=== PATIENT | female | born 1970 | race Caucasian/White ===

== ENCOUNTER 2020-02-21 06:45 | Outpatient (REF) | payer OTHER, SELFPAY | END 2020-02-21 06:46 | disposition home or self-care (01) | LOC: HO.LAB 06:45 | PROVIDERS: Visit Provider Internal Medicine | DX: Z20.828 Contact with and (suspected) exposure to other viral communicable diseases (principal) | CPT/HCPCS: C9803; U0003 ==

== ENCOUNTER 2020-03-15 07:13 | Outpatient (REF) | payer OTHER, SELFPAY | END 2020-03-15 07:14 | disposition home or self-care (01) | LOC: HO.LAB 07:13 | PROVIDERS: PCP Internal Medicine; Visit Provider Internal Medicine | DX: Z20.828 Contact with and (suspected) exposure to other viral communicable diseases (principal) | CPT/HCPCS: C9803; U0003 ==

== ENCOUNTER 2020-03-27 07:56 | Outpatient (REF) | payer OTHER, SELFPAY | END 2020-03-27 07:57 | disposition home or self-care (01) | LOC: HO.LAB 07:56 | PROVIDERS: Visit Provider Internal Medicine | DX: Z20.822 Contact with and (suspected) exposure to COVID-19 (principal) | CPT/HCPCS: 36415; C9803; U0003 ==

== ENCOUNTER 2020-04-04 09:53 | Outpatient (REF) | payer OTHER, SELFPAY ==
[2020-04-07 12:12] LABS: HPV mRNA E6/E7 Not Detected (Not Detected)
== END 2020-04-04 09:54 | disposition home or self-care (01) ==
LOC: HO.LAB 09:53
PROVIDERS: Visit Provider Advanced Practice Midwife
DX: Z01.419 Encounter for gynecological examination (general) (routine) without abnormal findings (principal); Z87.42 Personal history of other diseases of the female genital tract
CPT/HCPCS: 36415; 87624; 87625; 88141; 88142

== ENCOUNTER 2020-11-17 07:17 | Outpatient (REF) | payer OTHER, SELFPAY ==
--- NOTE | ~2020-11-17 | MM_ITS ---
EXAMINATION: MM SCREENING DIGITAL BREAST TOMOSYNTHESIS, BILATERAL CLINICAL INFORMATION: Screening. Asymptomatic. Benign left stereotactic biopsy 09/11/2018 (Breast tissue with columnar cell change, fibrocystic changes, and microcalcifications; no atypia or carcinoma seen). The lifetime risk of breast cancer based on the Tyrer-Cuzick Model is 10%. COMPARISON: Mammography: 09/15/2019, 03/16/2019, 03/11/2018, 2018, 03/02/2018 TECHNIQUE: Digital breast tomosynthesis is performed in both the craniocaudal and mediolateral oblique views along with computer-aided detection (CAD). Synthesized 2D images are generated from the tomosynthesis. FINDINGS: The breasts are heterogeneously dense, which may obscure small masses (ACR BI-RADS breast composition Category c). Breast tissue composition borders on average fibroglandular. There is a biopsy clip marker anterior 9:00 left breast. There are stable calcifications posterior 12:00 right breast. Neither breast shows interval mass or architectural abnormality. There is no developing density. The axilla and skin contours are unremarkable. No significant changes. MM/MM tomosynthesis screening BI IMPRESSION: No mammographic evidence of malignancy. ASSESSMENT: BI-RADS 2: Benign RECOMMENDATION: Routine annual mammography screening. This patient's information was entered into a reminder system with a target due date for their next mammogram.
== END 2020-11-17 07:18 | disposition home or self-care (01) ==
LOC: HO.MAMMO 07:17
PROVIDERS: Visit Provider Internal Medicine
DX: Z12.31 Encounter for screening mammogram for malignant neoplasm of breast (principal)
CPT/HCPCS: 77063; 77067

== ENCOUNTER 2021-11-23 07:16 | Outpatient (REF) | payer OTHER, SELFPAY ==
--- NOTE | ~2021-11-23 | MM_ITS ---
EXAMINATION: MM SCREENING DIGITAL BREAST TOMOSYNTHESIS, BILATERAL CLINICAL INFORMATION: Screening. Asymptomatic. The lifetime risk of breast cancer based on the Tyrer-Cuzick Model is 9%. COMPARISON: Mammography: 11/17/2020, 09/15/2019, 03/16/2019, 09/03/2018, 03/02/2018, 08/09/2017 TECHNIQUE: Digital breast tomosynthesis is performed in both the craniocaudal and mediolateral oblique views along with computer-aided detection (CAD). Synthesized 2D images are generated from the tomosynthesis. FINDINGS: The breasts are heterogeneously dense, which may obscure small masses (ACR BI-RADS breast composition Category c). Parenchymal pattern is similar to prior studies and there is no developing density or interval architectural abnormality. Left breast has biopsy clip marker anterior 9:00 position. There is a stable small dermal lesion posterior inferior left breast and small intramammary node again noted posterior upper outer left breast. There are stable grouped punctate calcifications right breast similar to prior studies. The left breast has new loosely grouped fine calcifications mid outer breast and central inner breast on CC view. These may be dispersed on the MLO view. Patient will be recalled for additional imaging. MM/MM tomosynthesis screening BI IMPRESSION: Left: -New fine loosely grouped calcifications mid outer breast and central inner breast on CC view. Right: -No mammographic evidence of malignancy. ASSESSMENT: BI-RADS 0: Incomplete - Need Additional Imaging Evaluation RECOMMENDATION: 1. Additional views of the left breast (magnification CC outer and inner, magnification ML). 2. Radiology department staff will contact the patient for additional imaging. This patient's information was entered into a reminder system with a target due date for their next mammogram.
== END 2021-11-23 07:17 | disposition home or self-care (01) ==
LOC: HO.MAMMO 07:16
PROVIDERS: PCP Internal Medicine; Visit Provider Internal Medicine
DX: Z12.31 Encounter for screening mammogram for malignant neoplasm of breast (principal)
CPT/HCPCS: 77063; 77067

== ENCOUNTER 2021-12-10 15:07 | Outpatient (REF) | payer OTHER, SELFPAY ==
--- NOTE | ~2021-12-10 | MM_ITS ---
EXAMINATION: MM DIAGNOSTIC DIGITAL MAMMOGRAPHY, LEFT CLINICAL INFORMATION: Recall from screening for calcifications inner and outer breast. Prior history stereotactic biopsy left breast 2019 (Breast tissue with columnar cell change, fibrocystic changes, and microcalcifications; no atypia or carcinoma seen). TC score 9%. COMPARISON: Mammography: 11/23/2021, 11/17/2020 TECHNIQUE: Digital mammography is performed in the following views: Magnification left CC x2, magnification left ML. FINDINGS: The breasts are heterogeneously dense, which may obscure small masses (ACR BI-RADS breast composition Category c). The additional views show benign-appearing loosely grouped calcifications mid outer left breast and mid inner left breast. There are similar scattered calcifications contralateral right breast. Management plan is for follow-up left mammography in 6 months to include magnification views. Results are discussed with the patient at time of visit. MM/MM added views LT IMPRESSION: Probable benign loosely grouped calcifications mid outer and mid inner left breast. ASSESSMENT: BI-RADS 3: Probably Benign RECOMMENDATION: Diagnostic left mammography in 6 months. This patient's information was entered into a reminder system with a target due date for their next mammogram.
== END 2021-12-10 15:08 | disposition home or self-care (01) ==
LOC: HO.MAMMO 15:07
PROVIDERS: PCP Internal Medicine; Visit Provider Internal Medicine
DX: R92.8 Other abnormal and inconclusive findings on diagnostic imaging of breast (principal)
CPT/HCPCS: 77065

== ENCOUNTER 2022-02-27 11:16 | Outpatient (REF) | payer OTHER, SELFPAY ==
[2022-02-28 03:22] LABS: CT PCR NOT DETECTED (Not Detect.); NG PCR NOT DETECTED (Not Detect.)
[2022-02-28 11:16] LABS: BV Int Neg Control Negative (Negative); BV Int Pos Control Positive (Positive)
== END 2022-02-27 11:17 | disposition home or self-care (01) ==
LOC: HO.LNP 11:16
PROVIDERS: Visit Provider Advanced Practice Midwife
DX: Z01.419 Encounter for gynecological examination (general) (routine) without abnormal findings (principal)
CPT/HCPCS: 87480; 87491; 87510; 87591; 87660

== ENCOUNTER 2022-03-19 06:59 | Outpatient (REF) | payer OTHER, SELFPAY ==
[2022-03-20 03:54] LABS: Syphilis Screen Nonreactive (Nonreactive)
[2022-03-20 04:56] LABS: HIV AB/AG Nonreactive (Nonreactive); HIV Num 1 0.07 S/CO (0.00-0.99); Hepatitis B Surface Antigen Negative (Negative); ~HepC Num1 0.09 S/CO (0.00-0.79); ~Hepatitis C Antibody Nonreactive (Nonreactive)
== END 2022-03-19 07:00 | disposition home or self-care (01) ==
LOC: HO.LAB 06:59
PROVIDERS: PCP Internal Medicine; Visit Provider Advanced Practice Midwife
DX: Z01.419 Encounter for gynecological examination (general) (routine) without abnormal findings (principal); Z87.42 Personal history of other diseases of the female genital tract; Z12.39 Encounter for other screening for malignant neoplasm of breast; Z11.3 Encounter for screening for infections with a predominantly sexual mode of transmission
CPT/HCPCS: 36415; 86780; 86803; 87340; 87389

== ENCOUNTER 2022-06-12 15:03 | Outpatient (REF) | payer OTHER, SELFPAY ==
--- NOTE | ~2022-06-12 | MM_ITS ---
EXAMINATION: MM DIAGNOSTIC DIGITAL BREAST TOMOSYNTHESIS, LEFT CLINICAL INFORMATION: Six-month follow-up left breast calcifications. COMPARISON: Mammography: 12/10/2021 and studies dating back to 05/08/2015. TECHNIQUE: Digital breast tomosynthesis is performed in both the craniocaudal and mediolateral oblique views along with computer-aided detection (CAD). Synthesized 2D images are generated from the tomosynthesis. Magnification views of the left breast in craniocaudal and 90 degree mediolateral views also performed. FINDINGS: The breasts are heterogeneously dense, which may obscure small masses (ACR BI-RADS breast composition Category c). There is stable appearance of the 2 groupings of calcifications about the mid outer left breast and mid inner left breast. There are some other scattered calcifications present. No new more suspicious grouping of microcalcifications identified. No new abnormal dominant mass is seen. A 6 month follow-up bilateral mammography is suggested with magnification views of the left breast at that time. Results are provided to the patient at time of visit by the technologist. MM/MM tomosynthesis diagnostic LT IMPRESSION: There are no significant changes from prior study. ASSESSMENT: BI-RADS 3: Probably Benign RECOMMENDATION: Diagnostic mammography in 6 months. This patient's information was entered into a reminder system with a target due date for their next mammogram.
== END 2022-06-12 15:04 | disposition home or self-care (01) ==
LOC: HO.MAMMO 15:03
PROVIDERS: Visit Provider Internal Medicine
DX: R92.8 Other abnormal and inconclusive findings on diagnostic imaging of breast (principal)
CPT/HCPCS: 77061; 77065

== ENCOUNTER 2022-06-26 13:48 | Outpatient (REF) | payer OTHER, SELFPAY ==
[2022-06-27 06:51] LABS: CT PCR NOT DETECTED (Not Detect.); NG PCR NOT DETECTED (Not Detect.)
[2022-06-27 09:19] LABS: BV Int Neg Control Negative (Negative); BV Int Pos Control Positive (Positive)
== END 2022-06-26 13:49 | disposition home or self-care (01) ==
LOC: HO.LNP 13:48
PROVIDERS: Visit Provider Advanced Practice Midwife
DX: N89.8 Other specified noninflammatory disorders of vagina (principal)
CPT/HCPCS: 0353U; 87480; 87510; 87660

== ENCOUNTER 2022-12-20 14:47 | Outpatient (REF) | payer OTHER, SELFPAY | END 2022-12-20 14:48 | disposition home or self-care (01) | LOC: HO.MAMMO 14:47 | PROVIDERS: PCP Internal Medicine; Visit Provider Internal Medicine | DX: R92.8 Other abnormal and inconclusive findings on diagnostic imaging of breast (principal) | CPT/HCPCS: 77062; 77066 ==

== ENCOUNTER → 2022-12-20 15:00 | Outpatient (BNV) | payer OTHER, SELFPAY | PROVIDERS: PCP Internal Medicine; Visit Provider Radiology Diagnostic Radiology | DX: R92.1 Mammographic calcification found on diagnostic imaging of breast (principal) | CPT/HCPCS: 77062; 77066 ==

== ENCOUNTER 2023-04-15 10:52 | Outpatient (REF) | payer OTHER, SELFPAY ==
[2023-04-16 11:15] LABS: CT PCR NOT DETECTED (Not Detect.); NG PCR NOT DETECTED (Not Detect.)
[2023-04-16 13:13] LABS: BV Int Neg Control Negative (Negative); BV Int Pos Control Positive (Positive)
[2023-04-22 04:38] LABS: HPV mRNA E6/E7 rflx Not Detected (Not Detected)
== END 2023-04-15 10:53 | disposition home or self-care (01) ==
LOC: HO.LAB 10:52
PROVIDERS: PCP Internal Medicine; Visit Provider Advanced Practice Midwife
DX: Z01.419 Encounter for gynecological examination (general) (routine) without abnormal findings (principal); Z11.51 Encounter for screening for human papillomavirus (HPV); Z20.2 Contact with and (suspected) exposure to infections with a predominantly sexual mode of transmission; Z87.42 Personal history of other diseases of the female genital tract
CPT/HCPCS: 0353U; 87480; 87510; 87624; 87660; 88142

== ENCOUNTER 2023-04-15 10:52 | Outpatient (AMB) | payer OTHER, SELFPAY ==
--- NOTE | 2023-04-15 10:54 | MHC.OFFVIS ---
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 Required: No Information Interpreted: clinical only Holter Scanning Technician: Holter Scanning Technician Present Allergies No Known Allergies Allergy (Mild, Verified 04/15/23 10:55) NOT APPLICABLE iodine Allergy (Unknown, Verified 04/15/23 10:55) itching DuraPrep Allergy (Unknown, Uncoded 04/15/23 10:55) unknown Medication List - Last Reconciled 04/15/23 by Molly Plaza CNM multivitamin (Daily Multi-Vitamin tablet) 1 tab PO DAILY Is last menstrual period known: Yes Last menstrual period: 03/14/23 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 She had some abnormal Pap smears years ago but more recent ones were normal. She has not really worried about STIs but would like testing just to do everything. She is sexually active and her has a vasectomy. She changed jobs this year and she has a new dog so it is change the schedule and she has not getting as much exercise as she used to but she hopes she will in the spring she eats well and takes vitamins she tries to get enough calcium in her diet she is up-to-date on her mammograms and she was getting every 6 month mammograms for short while while something was being followed in evaluated but she is back to yearly she is done her Cologuard testing. She has a primary care provider and has had all her annual and blood work done and is doing well. She still gets her. And her last period was 03/14/2023. She feels she is probably due in the next few days. [facility] Medical History Hx of abnormal cervical Pap smear Surgical History Delivery by section Family History Father Diabetes Maternal Grandfather Diabetes Dementia Paternal Grandmother Dementia Diabetes Social History Alcohol intake: current Alcohol intake frequency: holidays/special occasions only Gender identity: Female Female Reproductive History Menstrual Age of Menarche: 12 Duration of menses: 3-5 days Date of last menstrual period: 03/14/23 control method: none Total pregnancies: 2 Full term: 2 Date of last pap smear: 04/04/20 (negative, 2018,neg.) History of abnormal pap smear: Yes (2013,HPV+) Date of Mammogram: 12/20/22 Physical Exam Vital Signs: Last Vital Signs BP 100/60 04/15/23 11:08 BMI result Body Mass Index 22.7 Const General: healthy appearing, comfortable, no acute distress, well developed and alert Nutritional Appearance: average body habitus Orientation/consciousness: patient oriented x3 Limitations: no limitations HEENT Head: Yes normocephalic Neck Neck: Yes normal visual inspection Chest Chest palpation & inspection: normal inspection of the chest Breast/axilla inspection: normal inspection of the breasts and normal inspection of the axillae Breast/axilla palpation: normal palpation of the breasts and normal palpation of the axillae Resp Effort & Inspection: normal respiratory effort GI Inspection: Yes normal to inspection, No Abdominal wall edema and No distended Palpation (GI): Soft to palpation and nontender General: Yes bladder normal to palpation External Female Exam: normal external appearance and normal appearance of the urethra Speculum Exam - Vagina: normal appearance of the vagina, normal palpation and normal vaginal discharge Speculum Exam - Cervix: normal appearance of the cervix, normal palpation and nontender Bimanual exam- vagina & uterus: normal bimanual exam, normal palpation, uterine size normal, bladder normal to palpation, consistency normal, normal palpation, uterine mobility normal, uterine shape normal, No Cervical tenderness present, non-tender and no cervical motion tenderness Bimanual Exam- Adnexa, other: normal adnexae, no masses, normal and No adnexal tenderness Neuro General: patient oriented x3 Assessment & Plan Assessment & Plan (1) Screen for sexually transmitted diseases: Code(s): Z11.3 - Encounter for screening for infections with a predominantly sexual mode of transmission (2) Breast cancer screening: Code(s): Z12.39 - Encounter for other screening for malignant neoplasm of breast (3) Hx of abnormal cervical Pap smear: Comment: 05/26/13- ascus/hpv pos/// 06/25/13- bx=chronic inflam?atypia// 06/2014-neg08/2017- neg , neg hpv 04/04/20- NIL, HPV neg. consider repap 5 yrs. 2017-neg// 04/04/20=NIL, neg HPV. Code(s): Z87.42 - Personal history of other diseases of the female genital tract (4) Well woman exam with routine gynecological exam: Code(s): Z01.419 - Encounter for gynecological examination (general) (routine) without abnormal findings Plan -----Discussed in this visit the following: healthy balanced diet, regular and consistent exercise, getting recommended health screens, doing the best she can for her particular health concerns, kegel exercises, pap smear screening and followup recommendations, mammography screening and SBE, normal changes in cycles in her life stage--- . Labs ordered that she can do whenever she wishes. She is getting her yearly mammograms and all her other annual testing. Discussed spencer menstrual changes and bone health as well Orders: Orders HIV Ab/Ag Today Z01.419 - Encounter for gynecological examination (general) (routine) without abnormal findings, Z11.3 - Encounter for screening for infections with a predominantly sexual mode of transmission, Z12.39 - Encounter for other screening for malignant neoplasm of breast, Z87.42 - Personal history of other diseases of the female genital tract Hepatitis B Surface Antigen Today Z01.419 - Encounter for gynecological examination (general) (routine) without abnormal findings, Z11.3 - Encounter for screening for infections with a predominantly sexual mode of transmission, Z12.39 - Encounter for other screening for malignant neoplasm of breast, Z87.42 - Personal history of other diseases of the female genital tract Hepatitis C Antibody Today Z01.419 - Encounter for gynecological examination (general) (routine) without abnormal findings, Z11.3 - Encounter for screening for infections with a predominantly sexual mode of transmission, Z12.39 - Encounter for other screening for malignant neoplasm of breast, Z87.42 - Personal history of other diseases of the female genital tract Syphilis Screen Today Z01.419 - Encounter for gynecological examination (general) (routine) without abnormal findings, Z11.3 - Encounter for screening for infections with a predominantly sexual mode of transmission, Z12.39 - Encounter for other screening for malignant neoplasm of breast, Z87.42 - Personal history of other diseases of the female genital tract Coding Level of Care Code Est Pt Prev Care 40-64y(09195) Diagnoses Screen for sexually transmitted diseases Z11.3 Breast cancer screening Z12.39 Hx of abnormal cervical Pap smear Z87.42 Well woman exam with routine gynecological exam Z01.419
[2023-04-15 11:08] VITALS: BP 100/60; BMI 22.7
== END 2023-04-15 11:49 | disposition home or self-care (01) ==
LOC: HO.HWSM 10:52
PROVIDERS: PCP Internal Medicine; Visit Provider Advanced Practice Midwife
DX: Z01.419 Encounter for gynecological examination (general) (routine) without abnormal findings (principal); Z11.3 Encounter for screening for infections with a predominantly sexual mode of transmission; Z12.39 Encounter for other screening for malignant neoplasm of breast; Z87.42 Personal history of other diseases of the female genital tract
CPT/HCPCS: 99396

== ENCOUNTER 2023-04-18 07:17 | Outpatient (REF) | payer OTHER, SELFPAY ==
[2023-04-18 09:14] LABS: HBsAGNum1 0.35 S/CO (0.00-0.99); HIV AB/AG Nonreactive (Nonreactive); HIV Num 1 0.07 S/CO (0.00-0.99); Hepatitis B Surface Antigen Negative (Negative); ~HepC Num1 0.09 S/CO (0.00-0.79); ~Hepatitis C Antibody Nonreactive (Nonreactive)
[2023-04-18 09:18] LABS: Syphilis Screen Nonreactive (Nonreactive)
== END 2023-04-18 07:18 | disposition home or self-care (01) ==
LOC: HO.LAB 07:17
PROVIDERS: Visit Provider Advanced Practice Midwife
DX: Z11.4 Encounter for screening for human immunodeficiency virus [HIV] (principal); Z20.2 Contact with and (suspected) exposure to infections with a predominantly sexual mode of transmission; Z87.42 Personal history of other diseases of the female genital tract
CPT/HCPCS: 36415; 86780; 86803; 87340; 87389

== ENCOUNTER 2024-01-27 14:52 | Outpatient (REF) | payer BC, SELFPAY ==
--- NOTE | ~2024-01-27 | MM_ITS ---
EXAMINATION: MM DIAGNOSTIC DIGITAL BREAST TOMOSYNTHESIS, BILATERAL CLINICAL INFORMATION: Six-month follow-up left breast calcifications 3 groups (to establish two-year stability). Patient also due for bilateral screening. COMPARISON: Mammography: 12/20/2022, 06/12/2022, 12/10/2021, (BI-RADS 0); 11/17/2020, and dating back to 2018. TECHNIQUE: Digital breast tomosynthesis is performed in both the craniocaudal and mediolateral oblique views along with computer-aided detection (CAD). Synthesized 2D images are generated from the tomosynthesis. FINDINGS: There are scattered areas of fibroglandular density (ACR BI-RADS breast composition Category b). The 3 groups of calcifications seen in the left breast spanning mid to anterior superior as well as medial and lateral, are stable without aggressive changes when compared with 6 months prior, and dating back to 12/10/2021. These have been stable over one year and are benign. No aggressive changes. Otherwise, the heterogeneously dense parenchymal pattern is unchanged. There is a stable buckle-shaped biopsy clip in the periareolar region medially. There are stable groups of calcifications in the right breast without aggressive change. There are no suspicious masses or areas of architectural distortion in either breast. No skin or axillary abnormalities. MM/MM tomosynthesis diagnostic BI IMPRESSION: 1. There are no findings suspicious for malignancy in either breast. 2. Calcifications in the upper aspect left breast being followed over a two-year period to have remained unchanged, and are benign. No further follow-up recommended. 3. Recommend the patient return to routine annual screening mammography to include both breasts. ASSESSMENT: BI-RADS BI-RADS 2 - Benign Findings RECOMMENDATION: 1 year F/U Results were provided to the patient at time of visit by the technologist. This patient's information was entered into a reminder system with a target due date for their next mammogram. Electronically signed by: Ziggy Albright MD 01/27/2024 03:41 PM JULIO CESAR
== END 2024-01-27 14:53 | disposition home or self-care (01) ==
LOC: HO.MAMMO 14:52
PROVIDERS: Visit Provider Internal Medicine
DX: R92.8 Other abnormal and inconclusive findings on diagnostic imaging of breast (principal)
CPT/HCPCS: 77062; 77066

== ENCOUNTER → 2024-01-27 15:00 | Outpatient (BNV) | payer BC, SELFPAY | PROVIDERS: Visit Provider Radiology Diagnostic Radiology | DX: R92.1 Mammographic calcification found on diagnostic imaging of breast (principal); R92.323 Mammographic fibroglandular density, bilateral breasts; R92.333 Mammographic heterogeneous density, bilateral breasts | CPT/HCPCS: 77062; 77066 ==